=== PATIENT | female | born 1960 | race Two or more races ===

== ENCOUNTER 2020-10-26 14:41 | Emergency (ER) | payer MEDICAID, OTHER ==
[~2020-10-26] VITALS: Ht 160 cm; Wt 86.2 kg
[2020-10-26] MEDS ORDERED: LABETALOL HCL 5 MG/ML 4ML SYRINGE IV ONE (16:00)
[2020-10-26 16:06] LABS: Urine Bacteria NONE SEEN /hpf (None Seen); Urine Blood Negative /uL (Negative); Urine Mucus FEW (None Seen); Urine Specific Gravity 1.026 (1.001-1.035); Urine WBC <1 /hpf (0 - 5)
[2020-10-26 17:05] LABS: Basophils # (auto) 0.1 10 ^3/uL (0-0.2); Basophils % (auto) 0.9 % (0.0-2.0); Eosinophils # (auto) 0.3 10 ^3/uL (0-0.8); Eosinophils % (auto) 3.2 % (0.0-7.0); Hematocrit 42.7 % (36.0-46.0); Hemoglobin 14.5 g/dL (12.2-16.2); Lymphocytes # (auto) 3.7 10 ^3/uL (0.4-5.4); Lymphocytes % (auto) 40.3 % (10.0-50.0); Mean Corpuscular Hemoglobin 30.2 pg (28.0-32.0); Mean Corpuscular Hgb Conc. 33.9 g/dL (32.0-36.0); Monocytes # (auto) 0.6 10 ^3/uL (0-1.3); Monocytes % (auto) 6.5 % (0.0-12.0); Neutrophils # (auto) 4.5 10 ^3/uL (1.6-8.6); Neutrophils % (auto) 49.1 % (37.0-80.0); Nucleated Red Blood Cells % 0.1 %; Platelet Count (auto) 140 10^3/uL (140-450); Red Cell Distribution Width 13.5 % (11.8-14.3); White Blood Cell 9.1 10^3/uL (4.4-10.8)
[2020-10-26 17:29] LABS: Albumin 3.6 g/dL (3.4-5.0); Anion Gap 8 (5-15); Blood Urea Nitrogen 24 mg/dL (7-18); Calcium 8.6 mg/dL (8.5-10.1); Carbon Dioxide 23 mmol/L (21-32); Chloride 109 mmol/L (98-107); Glucose 152 mg/dL (74-106); Magnesium 2.4 mg/dL (1.6-2.6); Potassium 3.7 mmol/L (3.5-5.1); Sodium 140 mmol/L (136-145)
[2020-10-26 17:36] LABS: Alanine Aminotransferase 33 U/L (13-56); Alkaline Phosphatase 112 U/L (45-117); Aspartate Aminotransferase 14 U/L (15-37); BUN/Creatinine Ratio 29.3; Bilirubin, Total 0.5 mg/dL (0.2-1.0); GFR African American 92 mL/min; GFR Non-African American 76 mL/min; Total Protein 7.3 g/dL (6.4-8.2)
[2020-10-26 18:27] VITALS: BP 116/55
== END 2020-10-26 19:03 | disposition home or self-care (01) ==
LOC: ER 14:41
DX: I10 Essential (primary) hypertension (principal); E11.65 Type 2 diabetes mellitus with hyperglycemia; R51.9 Headache, unspecified; H11.31 Conjunctival hemorrhage, right eye; E78.5 Hyperlipidemia, unspecified; Z90.710 Acquired absence of both cervix and uterus; Z90.89 Acquired absence of other organs
CPT/HCPCS: 36415; 70450; 71046; 80053; 81001; 83735; 84443; 84484; 85025; 93005; J3490

== ENCOUNTER 2020-11-17 15:20 | Inpatient (IN) | payer MEDICAID ==
[~2020-11-17] VITALS: Ht 160 cm; Wt 107.5 kg
[2020-11-17] MEDS ORDERED: SODIUM CHLORIDE 0.9% 500 ML IV ONE (15:45)
[2020-11-17] MEDS ORDERED: ACETAMINOPHEN 325 MG TAB PO ONE ×2 (16:21→16:30)
[2020-11-17 16:54] LABS: Basophils # (auto) 0 10 ^3/uL (0-0.2); Basophils % (auto) 0.5 % (0.0-2.0); Eosinophils # (auto) 0 10 ^3/uL (0-0.8); Hematocrit 40.6 % (36.0-46.0); Hemoglobin 13.8 g/dL (12.2-16.2); Lymphocytes # (auto) 1.5 10 ^3/uL (0.4-5.4); Mean Corpuscular Hemoglobin 29.7 pg (28.0-32.0); Mean Corpuscular Hgb Conc. 34.1 g/dL (32.0-36.0); Monocytes # (auto) 0.5 10 ^3/uL (0-1.3); Monocytes % (auto) 8.9 % (0.0-12.0); Neutrophils # (auto) 3.2 10 ^3/uL (1.6-8.6); Neutrophils % (auto) 61.6 % (37.0-80.0); Nucleated Red Blood Cells % 0.2 %; Red Blood Cells 4.66 10^6/uL (4.0-5.20); Red Cell Distribution Width 13.6 % (11.8-14.3); White Blood Cell 5.1 10^3/uL (4.4-10.8)
[2020-11-17 17:07] LABS: Albumin 3.5 g/dL (3.4-5.0); Anion Gap 8 (5-15); Blood Urea Nitrogen 17 mg/dL (7-18); Calcium 7.9 mg/dL (8.5-10.1); Carbon Dioxide 23 mmol/L (21-32); Chloride 102 mmol/L (98-107); Magnesium 2.3 mg/dL (1.6-2.6); Potassium 4.1 mmol/L (3.5-5.1); Sodium 133 mmol/L (136-145)
[2020-11-17 17:17] LABS: Alanine Aminotransferase 32 U/L (13-56); Alkaline Phosphatase 82 U/L (45-117); Aspartate Aminotransferase 19 U/L (15-37); BUN/Creatinine Ratio 18.5; Bilirubin, Total 0.6 mg/dL (0.2-1.0); CRP High Sensitivity 2.14 mg/dL (< 0.3); GFR African American 81 mL/min; GFR Non-African American 67 mL/min; Glucose 113 mg/dL (74-106); Total Protein 7.4 g/dL (6.4-8.2)
[2020-11-17] MEDS ORDERED: REMDESIVIR PER PHARMACY 0 ML IV SCH (18:00)
[2020-11-17] MEDS ORDERED: ASCORBIC ACID 500 MG TAB PO ONE (18:00)
[2020-11-17] MEDS ORDERED: ZINC SULFATE 220mg CAP or TAB PO ONE (18:00)
[2020-11-17] MEDS ORDERED: methylPREDNISolone SOD SUCC 125 MG/2 ML VL IV ONE (18:00)
[2020-11-17] MEDS ORDERED: CHOLECALCIFEROL (VITD3) 2,000 UNIT CAP/TAB PO ONE (18:00)
[2020-11-17] MEDS ORDERED: AZITHROMYCIN 500MG/ 250ML 250 ML IV ONE (18:00)
[2020-11-17] MEDS ORDERED: REMDESIVIR 200 MG in NS 210ml LOADING DOSE ADULT IV ONE (19:00)
[2020-11-17] MEDS: ENOXAPARIN SOD 40 MG/0.4 ML SYRINGE SC SCH (21:37)
[2020-11-17] MEDS: ATORVASTATIN 20 MG TAB PO SCH (21:37)
[2020-11-17] MEDS ORDERED: ONDANSETRON HCL 4 MG/2 ML VIAL IV PRN (21:45)
[2020-11-17] MEDS ORDERED: NITROGLYCERIN 0.4 MG SL TAB SL PRN (21:45)
[2020-11-17] MEDS ORDERED: TEMAZEPAM 15 MG CAP PO PRN (21:45)
[2020-11-17] MEDS ORDERED: MORPHINE SULFATE INJECTION 2 MG/ML SYRG IV PRN (21:45)
[2020-11-17] MEDS: IPRATROPIUM BROMIDE HFA AER IN SCH (21:48)
[2020-11-17 21:59] VITALS: BP 114/56
[2020-11-17] MEDS: FAMOTIDINE 20 MG TAB PO SCH (23:05)
[2020-11-18] VITALS (7 sets, daily range): BP systolic 112–145; BP diastolic 51–76
[2020-11-18] MEDS ORDERED: PIO30T PO (04:46)
[2020-11-18] MEDS ORDERED: ASPI-543 PO (04:46)
[2020-11-18] MEDS ORDERED: ATOR10TA PO (04:46)
[2020-11-18] MEDS ORDERED: ENAL2.5T7 PO (04:46)
[2020-11-18] MEDS: IPRATROPIUM BROMIDE HFA AER IN SCH ×3 (06:00→12:06)
[2020-11-18] MEDS ORDERED: IVERMECTIN 3 MG TAB PO ONE (07:00)
[2020-11-18 07:40] LABS: Basophils # (auto) 0 10 ^3/uL (0-0.2); Basophils % (auto) 0.2 % (0.0-2.0); Eosinophils # (auto) 0 10 ^3/uL (0-0.8); Hematocrit 38.1 % (36.0-46.0); Hemoglobin 13.2 g/dL (12.2-16.2); Lymphocytes % (auto) 28.4 % (10.0-50.0); Mean Corpuscular Hemoglobin 30.1 pg (28.0-32.0); Mean Corpuscular Hgb Conc. 34.7 g/dL (32.0-36.0); Mean Corpuscular Volume 86.7 fL (80.0-100.0); Monocytes # (auto) 0.1 10 ^3/uL (0-1.3); Monocytes % (auto) 3.9 % (0.0-12.0); Neutrophils # (auto) 2.3 10 ^3/uL (1.6-8.6); Neutrophils % (auto) 67.5 % (37.0-80.0); Nucleated Red Blood Cells % 0.3 %; Red Cell Distribution Width 13.8 % (11.8-14.3); White Blood Cell 3.4 10^3/uL (4.4-10.8)
[2020-11-18 07:58] LABS: BUN/Creatinine Ratio 21.2; Calcium 7.8 mg/dL (8.5-10.1); Potassium 3.9 mmol/L (3.5-5.1)
[2020-11-18 08:01] LABS: Bilirubin, Total 0.4 mg/dL (0.2-1.0); Total Protein 6.8 g/dL (6.4-8.2)
[2020-11-18 09:33] LABS: Urine Bacteria FEW /hpf (None Seen); Urine Blood Negative /uL (Negative); Urine Mucus FEW (None Seen); Urine Specific Gravity 1.013 (1.001-1.035); Urine WBC 1 /hpf (0 - 5)
[2020-11-18] MEDS: ENOXAPARIN SOD 40 MG/0.4 ML SYRINGE SC SCH ×2 (09:44→21:12)
[2020-11-18] MEDS: DexAMETHasone SOD PHOS 10MG/1ML VIAL INJ IV SCH (09:44)
[2020-11-18] MEDS: ZINC SULFATE 220mg CAP or TAB PO SCH (09:45)
[2020-11-18] MEDS: ASCORBIC ACID 1,000 MG TAB PO SCH (09:45)
[2020-11-18] MEDS: FAMOTIDINE 20 MG TAB PO SCH ×2 (09:45→21:11)
[2020-11-18] MEDS: amLODIPine BESYLATE 5 MG TAB PO SCH (09:45)
[2020-11-18] MEDS: CHOLECALCIFEROL (VITD3) 2,000 UNIT CAP/TAB PO SCH (09:45)
[2020-11-18] MEDS ORDERED: AZITHROMYCIN 500MG/ 250ML 250 ML IV SCH (10:00)
[2020-11-18] MEDS: ALBUTEROL SULF HFA 90MCG INH 200DOSE IN PRN (12:06)
[2020-11-18] MEDS ORDERED: FUROSEMIDE 20 MG/2 ML VIAL IV ONE (14:30)
[2020-11-18] MEDS ORDERED: DEXTROSE (50%) 50ML SYRG IV PRN (14:30)
[2020-11-18] MEDS ORDERED: DOXYCYCLINE 100 MG TAB/CAP PO ONE (14:30)
[2020-11-18] MEDS ORDERED: POTASSIUM CHL 10 Meq TABLET PO ONE (14:30)
[2020-11-18] MEDS: REMDESIVIR 100mg 100 MG in SODIUM CHL 0.9% 230 ML IV SCH (14:33)
[2020-11-18] MEDS: ACETAMINOPHEN 325 MG TAB PO PRN (14:58)
[2020-11-18] MEDS: InsuLIN REG 1unit/0.01ml Soln (100units/ml) SC SCH ×2 (17:00→21:43)
[2020-11-18] MEDS: ACCU-CHEK COMFORT CURVE STRIP VI SCH ×2 (18:01→21:12)
[2020-11-18] MEDS: ATORVASTATIN 20 MG TAB PO SCH (21:11)
[2020-11-18] MEDS: DOXYCYCLINE 100 MG TAB/CAP PO SCH (21:11)
[2020-11-19 05:00] VITALS: BP 133/73
[2020-11-19] MEDS: InsuLIN REG 1unit/0.01ml Soln (100units/ml) SC SCH ×4 (05:28→21:04)
[2020-11-19] MEDS: ACCU-CHEK COMFORT CURVE STRIP VI SCH ×4 (05:28→21:04)
[2020-11-19] MEDS: IPRATROPIUM BROMIDE HFA AER IN SCH ×5 (06:00→22:00)
[2020-11-19 08:22] VITALS: BP 134/68
[2020-11-19] MEDS: ZINC SULFATE 220mg CAP or TAB PO SCH (08:55)
[2020-11-19] MEDS: FUROSEMIDE 20 MG/2 ML VIAL IV SCH (08:55)
[2020-11-19] MEDS: POTASSIUM CHL 10 Meq TABLET PO SCH (08:55)
[2020-11-19] MEDS: DexAMETHasone SOD PHOS 10MG/1ML VIAL INJ IV SCH (08:55)
[2020-11-19] MEDS: ASCORBIC ACID 1,000 MG TAB PO SCH (08:56)
[2020-11-19] MEDS: FAMOTIDINE 20 MG TAB PO SCH ×2 (08:56→21:03)
[2020-11-19] MEDS: DOXYCYCLINE 100 MG TAB/CAP PO SCH ×2 (08:56→21:03)
[2020-11-19] MEDS: ENOXAPARIN SOD 40 MG/0.4 ML SYRINGE SC SCH ×2 (08:56→21:04)
[2020-11-19] MEDS: amLODIPine BESYLATE 5 MG TAB PO SCH (08:56)
[2020-11-19] MEDS: CHOLECALCIFEROL (VITD3) 2,000 UNIT CAP/TAB PO SCH (08:56)
[2020-11-19] MEDS: ACETAMINOPHEN 325 MG TAB PO PRN (08:57)
[2020-11-19 13:00] VITALS: BP 105/71
[2020-11-19] MEDS ORDERED: IOHEXOL 350 MG/ML 100ML IJ ONE (14:25)
[2020-11-19] MEDS: REMDESIVIR 100mg 100 MG in SODIUM CHL 0.9% 230 ML IV SCH (15:39)
[2020-11-19 17:00] VITALS: BP 128/77
[2020-11-19] MEDS: ATORVASTATIN 20 MG TAB PO SCH (21:03)
[2020-11-19 22:00] VITALS: BP 144/85
[2020-11-20 05:00] VITALS: BP 126/75
[2020-11-20 06:26] LABS: Potassium 3.8 mmol/L (3.5-5.1)
[2020-11-20] MEDS: InsuLIN REG 1unit/0.01ml Soln (100units/ml) SC SCH ×4 (07:00→23:22)
[2020-11-20] MEDS: IPRATROPIUM BROMIDE HFA AER IN SCH ×4 (07:09→22:00)
[2020-11-20] MEDS: ALBUTEROL SULF HFA 90MCG INH 200DOSE IN PRN (07:10)
[2020-11-20] MEDS: ACCU-CHEK COMFORT CURVE STRIP VI SCH ×4 (07:24→23:21)
[2020-11-20 08:20] VITALS: BP 153/77
[2020-11-20] MEDS: FUROSEMIDE 20 MG/2 ML VIAL IV SCH (08:25)
[2020-11-20] MEDS: ZINC SULFATE 220mg CAP or TAB PO SCH (08:25)
[2020-11-20] MEDS: DexAMETHasone SOD PHOS 10MG/1ML VIAL INJ IV SCH (08:25)
[2020-11-20] MEDS: POTASSIUM CHL 10 Meq TABLET PO SCH (08:25)
[2020-11-20] MEDS: amLODIPine BESYLATE 5 MG TAB PO SCH (08:26)
[2020-11-20] MEDS: CHOLECALCIFEROL (VITD3) 2,000 UNIT CAP/TAB PO SCH (08:26)
[2020-11-20] MEDS: ASCORBIC ACID 1,000 MG TAB PO SCH (08:26)
[2020-11-20] MEDS: FAMOTIDINE 20 MG TAB PO SCH (08:26)
[2020-11-20] MEDS: DOXYCYCLINE 100 MG TAB/CAP PO SCH (08:26)
[2020-11-20] MEDS: ENOXAPARIN SOD 40 MG/0.4 ML SYRINGE SC SCH ×2 (08:27→23:22)
[2020-11-20] MEDS ORDERED: ENALAPRIL MALEATE 2.5 MG TAB PO ONE (11:30)
[2020-11-20] MEDS ORDERED: PIOGLITAZONE HYDROCHLORIDE 30 MG TAB PO ONE (12:45)
[2020-11-20 12:52] VITALS: BP 130/79
[2020-11-20] MEDS: REMDESIVIR 100mg 100 MG in SODIUM CHL 0.9% 230 ML IV SCH (15:41)
[2020-11-20 17:42] VITALS: BP 112/79
[2020-11-20 22:00] VITALS: BP 120/63
[2020-11-20] MEDS: ATORVASTATIN 20 MG TAB PO SCH (23:21)
[2020-11-21 01:36] VITALS: BP 120/63
[2020-11-21 05:00] VITALS: BP 126/61
[2020-11-21] MEDS: ALBUTEROL SULF HFA 90MCG INH 200DOSE IN PRN (06:43)
[2020-11-21] MEDS: IPRATROPIUM BROMIDE HFA AER IN SCH ×2 (06:43→13:24)
[2020-11-21] MEDS: ACCU-CHEK COMFORT CURVE STRIP VI SCH ×3 (06:44→17:00)
[2020-11-21] MEDS: InsuLIN REG 1unit/0.01ml Soln (100units/ml) SC SCH ×3 (06:45→17:00)
[2020-11-21 06:49] LABS: Potassium 3.6 mmol/L (3.5-5.1)
[2020-11-21 06:57] LABS: Albumin 3.1 g/dL (3.4-5.0); BUN/Creatinine Ratio 33.8; Bilirubin, Total 0.5 mg/dL (0.2-1.0); Calcium 8.5 mg/dL (8.5-10.1); Total Protein 6.6 g/dL (6.4-8.2)
[2020-11-21 06:58] LABS: Basophils # (auto) 0 10 ^3/uL (0-0.2); Basophils % (auto) 0.1 % (0.0-2.0); Eosinophils # (auto) 0 10 ^3/uL (0-0.8); Hematocrit 40.1 % (36.0-46.0); Lymphocytes # (auto) 1.7 10 ^3/uL (0.4-5.4); Lymphocytes % (auto) 36.5 % (10.0-50.0); Mean Corpuscular Hemoglobin 30.2 pg (28.0-32.0); Mean Corpuscular Volume 86.3 fL (80.0-100.0); Monocytes # (auto) 0.5 10 ^3/uL (0-1.3); Monocytes % (auto) 11.8 % (0.0-12.0); Neutrophils # (auto) 2.3 10 ^3/uL (1.6-8.6); Neutrophils % (auto) 51.6 % (37.0-80.0); Nucleated Red Blood Cells % 0.7 %; Red Blood Cells 4.65 10^6/uL (4.0-5.20); Red Cell Distribution Width 13.9 % (11.8-14.3); White Blood Cell 4.5 10^3/uL (4.4-10.8)
[2020-11-21 08:34] VITALS: BP 132/66
[2020-11-21] MEDS ORDERED: DexAMETHasone 4 MG TAB PO SCH (10:00)
[2020-11-21] MEDS ORDERED: PIOGLITAZONE HYDROCHLORIDE 30 MG TAB PO SCH (10:00)
[2020-11-21] MEDS ORDERED: ENALAPRIL MALEATE 2.5 MG TAB PO SCH (10:00)
[2020-11-21] MEDS ORDERED: PANTOPRAZOLE 40 MG TAB PO SCH (10:00)
[2020-11-21] MEDS: FUROSEMIDE 20 MG/2 ML VIAL IV SCH (10:35)
[2020-11-21] MEDS: ZINC SULFATE 220mg CAP or TAB PO SCH (10:36)
[2020-11-21] MEDS: POTASSIUM CHL 10 Meq TABLET PO SCH (10:39)
[2020-11-21] MEDS: amLODIPine BESYLATE 5 MG TAB PO SCH (10:40)
[2020-11-21] MEDS: CHOLECALCIFEROL (VITD3) 2,000 UNIT CAP/TAB PO SCH (10:41)
[2020-11-21] MEDS: ASCORBIC ACID 1,000 MG TAB PO SCH (10:41)
[2020-11-21] MEDS: ENOXAPARIN SOD 40 MG/0.4 ML SYRINGE SC SCH (10:41)
[2020-11-21 13:00] VITALS: BP 149/85
[2020-11-21] MEDS ORDERED: DEX4T PO (14:36)
[2020-11-21] MEDS ORDERED: ZINC220T6 PO (14:36)
[2020-11-21] MEDS ORDERED: PANT40TA2 PO (14:36)
[2020-11-21] MEDS ORDERED: ASCO10003 PO (14:36)
[2020-11-21] MEDS ORDERED: ALBUAER3 IN (14:36)
[2020-11-21] MEDS ORDERED: ASPI-378 PO (14:39)
[2020-11-21] MEDS ORDERED: CHOL20007 PO (14:39)
[2020-11-21] MEDS: REMDESIVIR 100mg 100 MG in SODIUM CHL 0.9% 230 ML IV SCH (15:20)
[2020-11-21 16:46] VITALS: BP 153/83
[2020-11-21 16:56] VITALS: BP 153/83
== END 2020-11-21 17:59 | disposition home or self-care (01) | DRG 720 ==
LOC: ER 15:20 → TELE 21:37 → TELE-EAST 23:02
PROVIDERS: ADMIT Nurse Practitioner; ATTEND Internal Medicine
PROC: XW033E5 Introduction of Remdesivir Anti-infective into Peripheral Vein, Percutaneous Approach, New Technology Group 5 (ICD-10-PCS; principal; 2020-11-17)
DX: A41.89 Other specified sepsis (principal); U07.1 COVID-19; J96.00 Acute respiratory failure, unspecified whether with hypoxia or hypercapnia; J12.82 Pneumonia due to coronavirus disease 2019; I10 Essential (primary) hypertension; E11.9 Type 2 diabetes mellitus without complications; E78.5 Hyperlipidemia, unspecified; E55.9 Vitamin D deficiency, unspecified; E66.01 Morbid (severe) obesity due to excess calories; Z68.41 Body mass index [BMI] 40.0-44.9, adult; D89.839 Cytokine release syndrome, grade unspecified
CPT/HCPCS: 36415; 36600; 71045; 71275; 80053; 80061; 81001; 82306; 82728; 82805; 82962; 83036; 83605; 83615; 83735; 83880; 84132; 84443; 84484; 85025; 85379; 86141; 87040; 87426; 93005; 94640; 96361; 96374; G0378; J1100

== ENCOUNTER 2022-07-30 21:06 | Emergency (ER) | payer MEDICARE, MEDICAID ==
[~2022-07-30] VITALS: Ht 157.5 cm; Wt 107.6 kg
[~2022-07-30 21:06] MED LIST: ALBUAER3 IN; ASCO10003 PO; ASPI-378 PO; ASPI-543 PO; ATOR10TA PO; CHOL20007 PO; DEX4T PO; ENAL2.5T7 PO; PANT40TA2 PO; PIO30T PO; ZINC220T6 PO
[2022-07-30 22:36] VITALS: BP 167/82
[2022-07-31] MEDS ORDERED: AMOX-277 PO (00:23)
[2022-07-31] MEDS ORDERED: ACETAMINOPHEN 325 MG TAB PO ONE (00:30)
== END 2022-07-31 00:24 | disposition home or self-care (01) ==
LOC: ER 21:06
DX: H72.92 Unspecified perforation of tympanic membrane, left ear (principal); E11.9 Type 2 diabetes mellitus without complications; E78.5 Hyperlipidemia, unspecified; Z90.710 Acquired absence of both cervix and uterus; Z90.89 Acquired absence of other organs; Z79.82 Long term (current) use of aspirin; Z79.2 Long term (current) use of antibiotics; Z79.899 Other long term (current) drug therapy

== ENCOUNTER 2022-09-02 15:52 | Emergency (ER) | payer MEDICARE, MEDICAID ==
[~2022-09-02] VITALS: Ht 157.5 cm; Wt 90.0 kg
[~2022-09-02 15:52] MED LIST changes: +AMOX-277 PO
[2022-09-02] MEDS ORDERED: HYDROcodone-ACET 10/325MG TAB PO ONE (16:15)
[2022-09-02] MEDS ORDERED: HYDR-4902 PO (17:16)
[2022-09-02 17:50] VITALS: BP 168/65
== END 2022-09-02 17:52 | disposition home or self-care (01) ==
LOC: ER 15:52
DX: M25.461 Effusion, right knee (principal); E11.9 Type 2 diabetes mellitus without complications; E78.5 Hyperlipidemia, unspecified; Z90.710 Acquired absence of both cervix and uterus; Z90.89 Acquired absence of other organs; Z79.82 Long term (current) use of aspirin; Z79.899 Other long term (current) drug therapy; Z79.2 Long term (current) use of antibiotics
CPT/HCPCS: 73562

== ENCOUNTER 2023-05-12 17:06 | Emergency (ER) | payer OTHER, MEDICAID ==
[~2023-05-12] VITALS: Ht 160 cm; Wt 104.0 kg
[~2023-05-12 17:06] MED LIST changes: -AMOX-277 PO; +AMOX875T4 PO; +ENAL1TAB42 PO; -ENAL2.5T7 PO; +HYDR-4902 PO
[2023-05-12] MEDS ORDERED: NAP500T PO (20:38)
[2023-05-12] MEDS ORDERED: HYDR-4902 PO (20:38)
[2023-05-12] MEDS ORDERED: HYDROcodone-ACET 5/325MG TAB PO ONE (20:45)
[2023-05-12 22:03] VITALS: BP 160/80; PULSE 80; RESP 20; TEMP 98; O2SAT 100
== END 2023-05-12 22:18 | disposition home or self-care (01) ==
LOC: ER 17:06
DX: S22.31XA Fracture of one rib, right side, initial encounter for closed fracture (principal); E11.9 Type 2 diabetes mellitus without complications; E78.5 Hyperlipidemia, unspecified; I10 Essential (primary) hypertension; G89.29 Other chronic pain; M54.9 Dorsalgia, unspecified; M25.562 Pain in left knee; Z90.89 Acquired absence of other organs; Z90.710 Acquired absence of both cervix and uterus; Z79.82 Long term (current) use of aspirin; Z79.2 Long term (current) use of antibiotics; Z79.899 Other long term (current) drug therapy; W01.0XXA Fall on same level from slipping, tripping and stumbling without subsequent striking against object, initial encounter; Y93.89 Activity, other specified; Y92.89 Other specified places as the place of occurrence of the external cause; Y99.8 Other external cause status
CPT/HCPCS: 71101; 71250

== ENCOUNTER 2023-05-20 20:28 | Emergency (ER) | payer OTHER, MEDICAID ==
[~2023-05-20] VITALS: Ht 160 cm; Wt 105.0 kg
[~2023-05-20 20:28] MED LIST changes: +NAP500T PO
[2023-05-20 21:36] VITALS: BP 134/63; PULSE 81; RESP 20; O2SAT 95
[2023-05-21] MEDS ORDERED: HYDR-4902 PO (00:15)
[2023-05-21] MEDS ORDERED: HYDROcodone-ACET 5/325MG TAB PO ONE (00:15)
[2023-05-21] MEDS ORDERED: TRAM50TA2 PO (16:50)
== END 2023-05-21 00:31 | disposition home or self-care (01) ==
LOC: ER 20:28
DX: S29.011A Strain of muscle and tendon of front wall of thorax, initial encounter (principal); J84.10 Pulmonary fibrosis, unspecified; K44.9 Diaphragmatic hernia without obstruction or gangrene; I10 Essential (primary) hypertension; E11.9 Type 2 diabetes mellitus without complications; E78.5 Hyperlipidemia, unspecified; Z90.710 Acquired absence of both cervix and uterus; W18.39XA Other fall on same level, initial encounter; Y93.89 Activity, other specified; Y92.89 Other specified places as the place of occurrence of the external cause; Y99.8 Other external cause status
CPT/HCPCS: 71250

== ENCOUNTER 2023-05-21 14:30 | Emergency (ER) | payer OTHER, MEDICAID ==
[~2023-05-21] VITALS: Ht 160 cm; Wt 104.4 kg
[2023-05-21] MEDS ORDERED: traMADol HCL 50 MG TAB PO ONE (15:00)
[2023-05-21 15:50] LABS: Urine Bacteria FEW /hpf (None Seen); Urine Blood Negative /uL (Negative); Urine Clarity Clear (Clear); Urine Color Colorless (Yellow); Urine Protein, UAD Negative (Negative); Urine Specific Gravity 1.006 (1.001-1.035); Urine Urobilinogen Normal (Negative); Urine WBC 1 /hpf (0 - 5); Urine pH 6.5 (5.0-8.0)
[2023-05-21 16:11] LABS: Basophils # (auto) 0 10 ^3/uL (0-0.2); Basophils % (auto) 0.7 % (0.0-2.0); Eosinophils # (auto) 0.1 10 ^3/uL (0-0.8); Eosinophils % (auto) 2.5 % (0.0-7.0); Hematocrit 38.8 % (36.0-46.0); Hemoglobin 12.8 g/dL (12.2-16.2); Lymphocytes # (auto) 2.2 10 ^3/uL (0.4-5.4); Lymphocytes % (auto) 38.2 % (10.0-50.0); Mean Corpuscular Hemoglobin 30.3 pg (28.0-32.0); Mean Corpuscular Volume 91.9 fL (80.0-100.0); Monocytes # (auto) 0.4 10 ^3/uL (0-1.3); Monocytes % (auto) 7.1 % (0.0-12.0); Neutrophils % (auto) 51.5 % (37.0-80.0); Nucleated Red Blood Cells % 0.1 %; Red Blood Cells 4.22 10^6/uL (4.0-5.20); White Blood Cell 5.9 10^3/uL (4.4-10.8)
[2023-05-21 16:21] LABS: Alanine Aminotransferase 15 U/L (7-40); Albumin 4.4 g/dL (3.2-4.8); Alkaline Phosphatase 85 U/L (46-116); Anion Gap 4 (5-15); Aspartate Aminotransferase 13 U/L (13-40); BUN/Creatinine Ratio 16.3 (10.0-20.0); Blood Urea Nitrogen 17 mg/dL (9-23); Calcium 9.1 mg/dL (8.7-10.4); Carbon Dioxide 29 mmol/L (20-30); Chloride 108 mmol/L (98-107); Glucose 116 mg/dL (74-106); Potassium 3.9 mmol/L (3.5-5.1); Sodium 141 mmol/L (136-145)
[2023-05-21 16:22] LABS: Bilirubin, Total 0.8 mg/dL (0.2-1.0); Total Protein 6.7 g/dL (5.7-8.2)
[2023-05-21] MEDS ORDERED: TRAM50TA2 PO (16:50)
[2023-05-21 17:05] VITALS: BP 133/51; PULSE 76; RESP 16; TEMP 98.1; O2SAT 96
== END 2023-05-21 17:06 | disposition home or self-care (01) ==
LOC: ER 14:30
DX: R07.81 Pleurodynia (principal); E11.9 Type 2 diabetes mellitus without complications; E78.5 Hyperlipidemia, unspecified; I10 Essential (primary) hypertension; Z90.710 Acquired absence of both cervix and uterus
CPT/HCPCS: 36415; 80053; 81001; 85025; 93005

== ENCOUNTER 2023-07-07 20:00 | Emergency (ER) | payer OTHER, MEDICAID ==
[~2023-07-07] VITALS: Ht 152.4 cm; Wt 100.0 kg
[~2023-07-07 20:00] MED LIST changes: +TRAM50TA2 PO
[2023-07-07 20:36] VITALS: O2SAT 96
[2023-07-07 21:12] LABS: Basophils # (auto) 0.1 10 ^3/uL (0-0.2); Basophils % (auto) 0.9 % (0.0-2.0); Eosinophils # (auto) 0.3 10 ^3/uL (0-0.8); Hematocrit 38.1 % (36.0-46.0); Hemoglobin 12.8 g/dL (12.2-16.2); Lymphocytes # (auto) 2.9 10 ^3/uL (0.4-5.4); Lymphocytes % (auto) 34.2 % (10.0-50.0); Mean Corpuscular Hemoglobin 30.8 pg (28.0-32.0); Mean Corpuscular Hgb Conc. 33.6 g/dL (32.0-36.0); Mean Corpuscular Volume 91.8 fL (80.0-100.0); Monocytes # (auto) 0.6 10 ^3/uL (0-1.3); Monocytes % (auto) 6.7 % (0.0-12.0); Neutrophils # (auto) 4.6 10 ^3/uL (1.6-8.6); Neutrophils % (auto) 55.2 % (37.0-80.0); Red Blood Cells 4.15 10^6/uL (4.0-5.20); Red Cell Distribution Width 13.3 % (11.8-14.3); White Blood Cell 8.4 10^3/uL (4.4-10.8)
[2023-07-07 21:28] LABS: Alanine Aminotransferase 22 U/L (7-40); Albumin 4.6 g/dL (3.2-4.8); Alkaline Phosphatase 94 U/L (46-116); Anion Gap 10 (5-15); Aspartate Aminotransferase 13 U/L (13-40); BUN/Creatinine Ratio 21.9 (10.0-20.0); Bilirubin, Total 0.6 mg/dL (0.2-1.0); Blood Urea Nitrogen 23 mg/dL (9-23); Calcium 9.7 mg/dL (8.5-10.1); Carbon Dioxide 25 mmol/L (20-30); Chloride 108 mmol/L (98-107); Glucose 109 mg/dL (74-106); Potassium 4.3 mmol/L (3.5-5.1); Sodium 143 mmol/L (136-145); Total Protein 7.1 g/dL (5.7-8.2)
[2023-07-08] MEDS ORDERED: HYDR-4902 PO (00:09)
[2023-07-08 02:04] VITALS: BP 157/75; TEMP 98.5
[2023-07-08 02:05] VITALS: PULSE 76; RESP 20
== END 2023-07-08 02:09 | disposition home or self-care (01) ==
LOC: ER 20:00
DX: R60.0 Localized edema (principal); E11.9 Type 2 diabetes mellitus without complications; E78.5 Hyperlipidemia, unspecified; I10 Essential (primary) hypertension; Z90.710 Acquired absence of both cervix and uterus
CPT/HCPCS: 36415; 80053; 85025; 93971